=== PATIENT | male | born 1945 | race Caucasian/White ===

== ENCOUNTER 2021-01-15 14:01 | Day surgery (SDC) | payer MEDICARE, OTHER ==
[2021-01-15] MEDS ORDERED: OMNIPAQUE 350 MG/ML, 50 ML BOTTLE ONE (15:29)
[2021-01-15] MEDS ORDERED: CHOL10003 PO (16:00)
[2021-01-15] MEDS ORDERED: CHLORHEXIDINE 15 ML UDC PO ONE (16:00)
[2021-01-15] MEDS ORDERED: ASCO100018 PO (16:00)
[2021-01-15] MEDS ORDERED: MULT-658 PO (16:00)
[2021-01-15] MEDS ORDERED: PLEASE ENTER HEIGHT AND WEIGHT MC SCH (16:00)
[2021-01-15] MEDS ORDERED: LISI-170 PO (16:00)
[2021-01-15] MEDS ORDERED: ATOR10TA9 PO (16:00)
[2021-01-15] MEDS ORDERED: DICL100G19 PO (16:00)
[2021-01-15] MEDS ORDERED: LACTATED RINGERS 1,000 ML IV SCH (16:00)
[2021-01-15] MEDS ORDERED: PROMETHAZINE 25 MG/ML, 1ML IVPush PRN (16:30)
[2021-01-15] MEDS ORDERED: LABETALOL 5MG/ML, 20ML IV PRN (16:30)
[2021-01-15] MEDS ORDERED: OXYcodone 5 MG/5 ML ORAL.SOL UDC PO PRN (16:30)
[2021-01-15] MEDS ORDERED: MIDAZOLAM 1 MG/ML, 2ML IV PRN (16:30)
[2021-01-15] MEDS ORDERED: ALBUTEROL SULFATE 2.5 MG/3 ML NPPB PRN (16:30)
[2021-01-15] MEDS ORDERED: hydrALAzine 20 MG/ML, 1ML IV PRN (16:30)
[2021-01-15] MEDS ORDERED: ACETAMINOPHEN 325 MG TABLET PO PRN (16:30)
[2021-01-15] MEDS ORDERED: FENTANYL PF 100 MCG/2ML IV PRN (16:30)
[2021-01-15] MEDS ORDERED: BUPIVACAINE/PF 0.25% INFIL ONE (17:28)
[2021-01-15] MEDS ORDERED: OMNIPAQUE 350 MG/ML, 50 ML BOTTLE IV ONE (17:29)
[2021-01-15] MEDS ORDERED: SODIUM CHLORIDE 0.9% IV ONE (18:00)
[2021-01-15] MEDS ORDERED: GENTAMICIN IV ONE (18:00)
[2021-01-15] MEDS ORDERED: OPIUM/BELLADONNA SUPP.RECT 16.2-30 MG PR STA (19:10)
[2021-02-05] MEDS ORDERED: FLUO10CA13 PO (01:04)
[2021-02-11] MEDS ORDERED: FLUO20SO2 PO (13:44)
[2021-02-11] MEDS ORDERED: CALC200T24 PO (13:44)
[2021-02-11] MEDS ORDERED: AMPI3VIA IV (13:44)
[2021-02-11] MEDS ORDERED: LISI-170 PO (13:44)
[2021-02-11] MEDS ORDERED: ENOX40SY4 SQ (13:44)
[2021-02-11] MEDS ORDERED: ACET325T26 PO (13:44)
== END 2021-01-15 22:00 | disposition home or self-care (01) ==
LOC: OUT 14:01 → 4NE 19:19 → OUT 22:00
PROVIDERS: ATTEND Urology
DX: N35.813 Other membranous urethral stricture, male (principal); K60.4 Rectal fistula; N30.40 Irradiation cystitis without hematuria; N40.1 Benign prostatic hyperplasia with lower urinary tract symptoms; R35.1 Nocturia; N52.9 Male erectile dysfunction, unspecified; Z20.822 Contact with and (suspected) exposure to COVID-19; Z79.899 Other long term (current) drug therapy; Z85.46 Personal history of malignant neoplasm of prostate; Z80.0 Family history of malignant neoplasm of digestive organs
CPT/HCPCS: 51102; 51610; 52281; 71045; 74430; 74450; 80053; 82962; 84484; 85025; 93005; 99285; C1726; C1769; J0171; J0690; J1100; J1580; J2405; J2704; J3010; J7030; Q9958; Q9967; U0003; 51600; G0378

== ENCOUNTER 2021-01-15 14:18 | Emergency (ER) | payer MEDICARE, OTHER ==
[~2021-01-15] VITALS: Ht 165.1 cm; Wt 72.7 kg
--- NOTE | 2021-01-15 14:24 | NUR ---
TASK RN: STRAIGHTBACK TO ROOM 8 AFTER PT HAD NEAR SYNCOPE EPISODE. PT DENIES LOC BUT PER WITNESS STATES PT HAD +LOC AND WENT DOWN. PT STATES HE FEELS BETTER NOW. PT NOTED TO BE DIAPHORETIC. PT WAS CHECKING IN FOR CYSTOSCOPY. LAST MEAL TODAY AT 0800. PT AOX4 AT THIS TIME. PT BS 130 ON ARRIVAL TO ROOM. PT RESTING ON GURNEY. NADN. MONITORS APPLIED. VSS. EKG COMPLETED. ERP DR. BATRES AT BEDSIDE. REPORT TO HAY, PRIMARY RN.
[2021-01-15] MEDS ORDERED: SODIUM CHLORIDE 0.9% 1,000ML IVBOLUS ONE (14:30)
[2021-01-15] MEDS ORDERED: SODIUM CHLORIDE FLUSH 10ML SYR IVF ONE (14:30)
[2021-01-15 14:37] LABS: BASOPHILS % (AUTO) 1 % (0-1); EOSINOPHILS % (AUTO) 1 % (1-7); LYMPHOCYTES % (AUTO) 14 % (22-44); MEAN CORPUSCULAR HEMOGLOBIN 30.2 pg (27.5-34.5); MEAN CORPUSCULAR HGB CONC 32.9 g/dL (33.2-36.2); MEAN PLATELET VOLUME 6.6 fL (7.4-10.4); MONOCYTES % (AUTO) 7 % (2-9); NEUTROPHILS % (AUTO) 77 % (42-75); PLATELET COUNT 472 x10^3/uL (130-400); RED BLOOD COUNT 4.16 x10^6/uL (4.38-5.82); RED CELL DISTRIBUTION WIDTH 12.7 % (9.4-14.8)
[2021-01-15 14:44] VITALS: BP 98/55
--- NOTE | 2021-01-15 14:44 | NUR ---
PT RESTING IN BED. DENIES DIZZINESS WITH ORTHOSTATIC VITALS
[2021-01-15 14:46] LABS: ALANINE AMINOTRANSFERASE 33 U/L (12-78); ALBUMIN 2.9 g/dL (3.4-5.0); ANION GAP 9 mmol/L (5-15); CALCIUM 8.7 mg/dL (8.5-10.1); CHLORIDE 105 mmol/L (98-107); CREATININE 1.22 mg/dL (0.7-1.3)
[2021-01-15 14:50] LABS: ALKALINE PHOSPHATASE 81 U/L (45-117); BILIRUBIN,TOTAL 0.4 mg/dL (0.2-1.0); TOTAL PROTEIN 7.7 g/dL (6.4-8.2); TROPONIN I < 0.015 ng/mL (0.000-0.045)
[2021-01-15 15:12] LABS: MD SCAN
[2021-01-15] MEDS ORDERED: FENTANYL PF 100 MCG/2ML ONE ×2 (15:28→16:42)
[2021-01-15] MEDS ORDERED: CHLORHEXIDINE 15 ML UDC ONE (15:35)
[2021-01-15] MEDS ORDERED: BUPIVACAINE/PF 0.25% ONE (15:43)
[2021-01-15] MEDS ORDERED: EPINEPHRINE 1 MG/ML, 1ML ONE (15:44)
--- NOTE | 2021-01-15 15:51 | NUR ---
PT TO OR
[2021-01-15] MEDS ORDERED: DICL100G19 PO (16:00)
[2021-01-15] MEDS ORDERED: CHOL10003 PO (16:00)
[2021-01-15] MEDS ORDERED: LISI-170 PO (16:00)
[2021-01-15] MEDS ORDERED: MULT-658 PO (16:00)
[2021-01-15] MEDS ORDERED: ASCO100018 PO (16:00)
[2021-01-15] MEDS ORDERED: ATOR10TA9 PO (16:00)
[2021-01-15] MEDS ORDERED: PROPOFOL 10 MG/ML, 20ML ONE (16:39)
[2021-01-15] MEDS ORDERED: DEXAMETHASONE 4 MG/ML, 1ML ONE (16:39)
[2021-01-15] MEDS ORDERED: LIDOCAINE-MPF 2% ,5ML ONE (16:39)
[2021-01-15] MEDS ORDERED: CEFAZOLIN 1,000 MG ONE (16:39)
[2021-01-15] MEDS ORDERED: ONDANSETRON 2MG/ML, 2ML ONE (16:39)
[2021-01-15] MEDS ORDERED: OMNIPAQUE 350 MG/ML, 50 ML BOTTLE ONE (16:55)
[2021-01-15] MEDS ORDERED: OPIUM/BELLADONNA SUPP.RECT 16.2-30 MG ONE (19:01)
== END 2021-01-15 15:53 | disposition other institution (70) ==
LOC: ED 15:47
DX: D72.829 Elevated white blood cell count, unspecified (principal); R42 Dizziness and giddiness; R55 Syncope and collapse; R07.89 Other chest pain; I45.10 Unspecified right bundle-branch block; I10 Essential (primary) hypertension; Z85.46 Personal history of malignant neoplasm of prostate
CPT/HCPCS: 71045; 80053; 82962; 84484; 85025; 93005; 99285; J0171; J0690; J1100; J2405; J2704; J3010; J3490; J7030; Q9967

== ENCOUNTER 2021-01-28 09:10 | Emergency (ER) | payer MEDICARE, OTHER ==
[~2021-01-28] VITALS: Ht 165.1 cm; Wt 160.0 kg
[~2021-01-28 09:10] MED LIST: ASCO100018 PO; ATOR10TA9 PO; CHOL10003 PO; DICL100G19 PO; LISI-170 PO; MULT-658 PO
--- NOTE | 2021-01-28 09:23 | NUR ---
pt w/ c/o severe bladder pain . pt states he had his bladder scopped by urologist, Dr. Rivas, 3 days ago. pt had superpubic cath placed 2 weeks ago. attached to monitors, luann [facility].
--- NOTE | 2021-01-28 09:49 | NUR ---
pt resting in bed vss, nadn, awaiting urology
--- NOTE | 2021-01-28 10:22 | NUR ---
TASK RN: INFORMATION SYSTEMS ANALYST AT BEDSIDE TO DRAW BLOOD. PT DECLINED PAIN MEDS AT THIS TIME. IV IN RAC FLUSHES WITHOUT REDNESS/SWELLING. PT UPDATED ON POC.
[2021-01-28] MEDS ORDERED: MORPHINE SULFATE 4 MG/ML, 1ML IVPush PRN (10:30)
[2021-01-28 10:31] LABS: BASOPHILS % (AUTO) 1 % (0-1); EOSINOPHILS % (AUTO) 0 % (1-7); LYMPHOCYTES % (AUTO) 7 % (22-44); MEAN CORPUSCULAR HEMOGLOBIN 29.7 pg (27.5-34.5); MEAN CORPUSCULAR HGB CONC 32.8 g/dL (33.2-36.2); MEAN PLATELET VOLUME 6.3 fL (7.4-10.4); MONOCYTES % (AUTO) 7 % (2-9); NEUTROPHILS % (AUTO) 84 % (42-75); PLATELET COUNT 397 x10^3/uL (130-400); RED BLOOD COUNT 4.15 x10^6/uL (4.38-5.82); RED CELL DISTRIBUTION WIDTH 12.9 % (9.4-14.8)
--- NOTE | 2021-01-28 10:31 | NUR ---
REPORT TO DOYLE THEODORE.
--- NOTE | 2021-01-28 10:32 | NUR ---
William sheppard in [facility] - 01/28/21 at 1048 by ALLY pt to xray
[2021-01-28 10:37] LABS: MD NO
[2021-01-28 10:38] LABS: ALANINE AMINOTRANSFERASE 31 U/L (12-78); ALBUMIN 2.8 g/dL (3.4-5.0); ANION GAP 4 mmol/L (5-15); CALCIUM 8.9 mg/dL (8.5-10.1); CHLORIDE 102 mmol/L (98-107); CREATININE 1.04 mg/dL (0.7-1.3)
[2021-01-28 10:41] LABS: ALKALINE PHOSPHATASE 79 U/L (45-117); BILIRUBIN,TOTAL 0.7 mg/dL (0.2-1.0); TOTAL PROTEIN 7.5 g/dL (6.4-8.2)
[2021-01-28] MEDS ORDERED: SODIUM CHLORIDE FLUSH 10ML SYR IVF ONE (11:00)
[2021-01-28] MEDS ORDERED: ONDANSETRON 2MG/ML, 2ML IVPush ONE (11:00)
--- NOTE | 2021-01-28 11:06 | NUR ---
PT TO CT. PER PT OKAY TO GIVE INFO TO DAUGHTER MIO, DAUGHTER UPDATED ON POC, NUMBER [phone].
[2021-01-28] MEDS ORDERED: OMNIPAQUE 350 MG/ML, 100ML BOTTLE ONE (11:18)
[2021-01-28] MEDS ORDERED: SODIUM CHLORIDE 0.9%, 500ML IVBOLUS ONE (12:00)
[2021-01-28 12:13] LABS: MICROSCOPIC INDICATED
[2021-01-28 13:38] VITALS: BP 99/66
--- NOTE | 2021-01-28 13:39 | NUR ---
task rn:this rn attempted to dc and pt asked for pain med at dc. notified [facility] and primary rn.
== END 2021-01-28 13:39 | disposition home or self-care (01) ==
LOC: ED 10:17
DX: R10.2 Pelvic and perineal pain (principal); R10.9 Unspecified abdominal pain; K92.1 Melena; E78.5 Hyperlipidemia, unspecified; I10 Essential (primary) hypertension; Z85.46 Personal history of malignant neoplasm of prostate; Z79.899 Other long term (current) drug therapy
CPT/HCPCS: 36415; 74177; 80053; 81001; 83690; 85025; 99285; J7040; Q9967